=== PATIENT | male | born 1985 | race Caucasian/White ===

== ENCOUNTER → 2017-12-23 | Outpatient (CLI) | payer OTHER ==
[~2017-12-23] MED LIST: FLOMAX0.4 MG PO; PERCOCET 7.5-31 EACH PO; VISTARIL 25 MG25 M1 PO; ZOFRAN ODT4 MG PO
--- NOTE | 2017-12-26 09:57 | PAINCON ---
[facility] [address] [place] [address] PAIN MANAGEMENT CONSULTATION Name: ADELIA CORADO Room: [facility] Cristiane#: [id number] Admission: 12/23/17 Attend Phys: Kp Chaves Discharge: Date of : 89 Report #: [id number] THIS REPORT FOR: //name// CC: Britany Osullivan The patient is a 31-year-old gentleman, seen in consultation at the request of Dr Cifuentes for evaluation of pain, low back. The patient notes he has had chronic axial back pain for a number of years. He was just medically disabled from the secondary to back issues and is now relocated to [place]. He prior had actually fairly good relief with radiofrequency neurolysis of the lumbar spine, both in [place] and again in [facility]. He states last RFL was in June. Pain is beginning to recur, he rates anywhere from 3-9 on a VAS. Pain is in the back, right greater than left, episodic pain in the right leg, but really not below the knee. Has subjective paresthesia in the anterior thigh, but no bowel or bladder continence changes. No specific weakness. He notes intermittent periodic, shooting, aching, throbbing, sharp, stabbing pain, exacerbated with walking and moving, some relief when he is recumbent. He takes an occasional NSAID (ibuprofen) for this. REVIEW OF SYSTEMS: Complete review of systems attached to chart and gone over with the patient. He is , uses an e-cigarette, was counseled regarding nicotine use and correlation with axial back pain. Drinks alcohol very infrequently. Other than the chronic axial back pain, his 12-point review of systems is fairly unremarkable (negative). He had a prior right leg fracture, treated with ORIF in 2013. 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 Pain impact score averages . PHYSICAL EXAMINATION: VITAL SIGNS: Reveal a pleasant 68 inch, 200 pound gentleman, in moderate distress. BMI is 31.9 kilograms per meter squared. Blood pressure is 113/67, pulse 75, respirations 16. NEUROLOGIC: Cranial nerves 2-12 are grossly intact. HEENT: Pupils equal, react to light and accommodation. Extraocular muscles are intact. There is no nystagmus. Lateral gaze deviation. Thyroid unremarkable. Upper extremity strength is preserved. HEART: Regular, without murmur. LUNGS: Clear to auscultation. EXTREMITIES: Rises from chair using armrest. Gait is tandem. Lower extremity strength is preserved. Straight leg raise negative. He is tense across the low back, right greater than left. Pain is exacerbated with sidebending and rotation. Ale[place] [address] PAIN MANAGEMENT CONSULTATION Name: ADELIA CORADO Room: [facility] WENDY Sauer#: [id number] Admission: 12/23/17 Attend Phys: Kp Chaves Discharge: Date of : 89 Report #: [id number] ASSESSMENT: Symptomatic lumbar spondylitic pain by clinical exam and history. RECOMMENDATION: Discussion with the patient today about therapeutic option. We will plan on moving forward with bilateral L4-L5 and L5-S1 facet joint injections under fluoroscopy. If local anesthetic and steroid affords relief for several months, we can repeat somewhat as needed. If this affords transient relief, we will move forward with medial branch dorsal rami diagnostic blocks, L3-L4, L5, with intention of moving forward with radiofrequency neurolysis if this too affords transient relief. Thanks for allowing me to participate in the patient's care. I will keep you abreast of his progress. <ELECTRONICALLY SIGNED> By: Ubaldo Osullivan DO 12/26/17 0957 1233 [id number] Osullivan DO /nt
== END ==
LOC: M.PC 02:53
DX: M47.896 Other spondylosis, lumbar region (principal); F10.20 Alcohol dependence, uncomplicated

== ENCOUNTER → 2018-01-20 | Outpatient (CLI) | payer OTHER ==
--- NOTE | 2018-01-21 07:19 | PAINCON ---
[facility] [address] [place] [address] PAIN MANAGEMENT CONSULTATION Name: ADELIA CORADO Room: [facility] Cristiane#: [id number] Admission: 01/20/18 Attend Phys: Kp Chaves Discharge: Date of : 89 Report #: [id number] THIS REPORT FOR: //name// CC: Britany Osullivan PROCEDURE: Bilateral lumbar facet joint injection under fluoroscopy. INDICATION: Symptomatic lumbar and lumbosacral spondylosis without myelopathy and axial back pain. The patient was prior seen on 12/23/2017. Diagnosis is the same. We sought authorization for lumbar facet joint injection under fluoroscopy. He has prior had multiple procedures including RFL. Last RFL was back in June for the same pain. The patient has had good relief in the past. This is the first procedure I have done on the patient. He moved from out of town. He presents to the pain clinic today with authorization for procedure. Notes the pain is a little worse on the left than the right, but notes that it does vacillate back and forth. Rates his subjective pain score as 3-4 on a VAS. He wished to proceed with lumbar facet joint injection under fluoroscopy. We will follow up in 1 week to reevaluate. 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 PROCEDURE: Bilateral L4-L5 and L5-S1 facet joint injection under fluoroscopy. INDICATION: Lumbar and lumbosacral spondylosis without myelopathy. DESCRIPTION OF PROCEDURE: After written informed consent was obtained, the patient was taken to the fluoroscopy suite and placed in the prone position. After sterile prep and drape, skin wheal was raised. A 22-gauge stylet needle was placed to contact the inferior aspect of the right L4-L5 and L5-S1 facet joints. AP and lateral projections showed good needle placement. A 20 mg triamcinolone plus 1 mL of 0.5% preservative free bupivacaine was injected. Both needles were removed. C-arm was turned obliquely to the contralateral side and the procedure was repeated. After all four needles were removed, the patient was allowed to ambulate to recover and monitored for an appropriate period of time. He noted pain was near absent on discharge. We will plan on moving forward with medial branch dorsal rami diagnostic block, L3, L4, and L5, if he does not get long-term relief with the steroid. Fluoroscopy time was under 20 seconds. <ELECTRONICALLY SIGNED> By: Ubaldo Osullivan DO 01/21/18 0719 1504 [id number] Osullivan DO /nt
== END | disposition home or self-care (01) ==
LOC: M.PC 03:34
DX: M47.816 Spondylosis without myelopathy or radiculopathy, lumbar region (principal); M47.817 Spondylosis without myelopathy or radiculopathy, lumbosacral region; G89.29 Other chronic pain; F17.200 Nicotine dependence, unspecified, uncomplicated; Z98.890 Other specified postprocedural states

== ENCOUNTER → 2018-02-03 | Outpatient (CLI) | payer OTHER ==
--- NOTE | 2018-02-04 07:13 | PAINCON ---
[facility] [address] [place] [address] PAIN MANAGEMENT CONSULTATION Name: MICKIEADELIA [facility] [id number] Admission: 02/03/18 Attend Phys: Kp Chaves Discharge: Date of : 87 Report #: [id number] THIS REPORT FOR: //name// CC: Britany Osullivan The patient is a 32-year-old gentleman prior diagnosed with symptomatic lumbar and lumbosacral spondylosis without myelopathy. Component of SI mediated pain though the latter appears fairly nominal. The patient was last seen in the pain clinic on 01/20/2018. Bilateral L4-L5 and L5-S1 facet joint injections under fluoroscopy afforded good yet transient relief of symptoms. The patient relates at least a 50% improvement. He returns to the pain clinic today noting pain continues to be problematic across the low back. Rates the pain as a 3-4 on a VAS and worse with activity. PHYSICAL EXAMINATION: Unchanged, 5 feet 8 inches, 204 pound gentleman, BMI of 31.3 kilograms per meter squared. Blood pressure 121/78, pulse 71 and respirations 16. Rises from chair using armrest. Gait is tandem. Lower extremity strength is preserved. Pain is exacerbated with rotation, sidebending and tender over the low lumbar facets. Does have a component of some pain over the SI joint though Aleksander test is nominal. ASSESSMENT: Symptomatic lumbar and lumbosacral spondylosis without myelopathy. RECOMMENDATION: After discussion with the patient today, we would like to move forward with bilateral medial branch dorsal rami diagnostic blocks at L3, L4 and L5. If this affords transient relief, we will consider radiofrequency neurolysis likely starting in the right side, which is a little more painful than the left. PROCEDURE NOTE: Bilateral L3, L4 and L5 medial branch dorsal rami diagnostic block. DESCRIPTION OF PROCEDURE: After written informed consent was obtained, the patient was taken to the fluoroscopy suite and placed in prone position. After sterile prep and drape, skin wheal was raised. A 22-gauge stylet needle was placed to contact the left L4 superior articular process, left L5 superior articular process and the left sacral ala notch compatible with left L3, L4, L5 medial branch dorsal rami. AP and lateral projections showed good needle placement. 1 mL of a 50:50 mix of 0.5% preservative-free bupivacaine with 1.5% preservative-free Xylocaine with 1:200,000 epinephrine was injected at each site. C-arm was turned obliquely to the contralateral side and the procedure was repeated. After all six needles were removed, the area was cleansed and Band-Aid was applied. Fluoroscopy time was approximately 20 seconds. The patient was allowed to ambulate to recovery room, monitored for an appropriate period of time, discharged in good and stable condition noting significant improvement in baseline pain in fact rating his pain at 1 [place] [address] PAIN MANAGEMENT CONSULTATION Name: ADELIA CORADO Room: [facility] Sauer#: [id number] Admission: 02/03/18 Attend Phys: Kp Chaves Discharge: Date of : 89 Report #: [id number] plan on moving forward with right-sided RFL. We will have the patient call the nurse line to report pain scores over the next 3 hours as well. <ELECTRONICALLY SIGNED> By: Ubaldo Osullivan DO 02/04/18 0713 1529 0015Ubaldo Osullivan DO /nt
== END | disposition home or self-care (01) ==
LOC: M.PC 04:01
DX: M47.816 Spondylosis without myelopathy or radiculopathy, lumbar region (principal); M47.817 Spondylosis without myelopathy or radiculopathy, lumbosacral region; M53.3 Sacrococcygeal disorders, not elsewhere classified; G89.29 Other chronic pain

== ENCOUNTER → 2018-02-10 | Outpatient (CLI) | payer OTHER ==
--- NOTE | 2018-02-11 07:09 | PAINCON ---
[address] [address] PAIN MANAGEMENT CONSULTATION Name: ADELIA CORADO Room: [facility]END[facility] Sauer#: [id number] Admission: 02/10/18 Attend Phys: Kp Chaves Discharge: Date of : 89 Report #: [id number] THIS REPORT FOR: //name// CC: Britany Osullivan DATE OF SERVICE: 02/10/2018 PROCEDURE: Radiofrequency neurolysis x 3, lumbar spine. INDICATION: Symptomatic lumbar and lumbosacral spondylosis without myelopathy (M47.816, M47.817). The patient had good improvement following diagnostic blocks, 01/20/2018 and 02/03/2018. Returns to pain clinic today requesting RFL. He has had this done several years ago at another location. We discussed risks and benefits today. The patient wished to proceed. Pain is primarily right sided. He wished to start with a right, will see him next week for consideration for left-sided RFL. ASSESSMENT: Symptomatic lumbar and lumbosacral spondylosis without myelopathy. PROCEDURE: Right, L3, L4, L5 medial branch dorsal rami neurolysis. DESCRIPTION OF PROCEDURE: After written and informed consent was obtained, the patient was taken to the fluoroscopy suite and placed in prone position. After sterile prep and drape, skin wheal was raised. After skin wheal was raised, a 40 mm RFK needle was placed to contact the right sacral ala notch, second needle was placed lateral to the L5 superior articular process adjacent to the L4-L5 facet and third needle was placed lateral to the L4 superior articular process lateral to the L3-L4 facet. AP and lateral projections showed good needle placement corresponding to the L5, L4 and L3 medial branch dorsal rami. Initial impedance, motor and sensory testing was accomplished, numbers are on the chart. Each needle was then injected with 1 mL of 1% preservative-free Xylocaine and heated for 90 seconds at 80 degrees centigrade. Each needle was then withdrawn approximately 1 mm and turned 90 degrees and heated 80 degrees centigrade for another 60 seconds. A 30 mg triamcinolone plus 1 mL of 0.5% preservative-free bupivacaine was injected to each site. All 3 needles were removed, area was cleansed, Band-Aids applied. The patient was allowed to ambulate to recovery, monitored [place] [address] PAIN MANAGEMENT CONSULTATION Name: ADELIA CORADO Room: [facility] Sauer#: [id number] Admission: 02/10/18 Attend Phys: Kp Chaves Discharge: Date of : 89 Report #: [id number] Fluoroscopy time was under 30 seconds. Followup in 1 week for reevaluation. Consideration for contralateral, i.e. left, radiofrequency neurolysis. <ELECTRONICALLY SIGNED> By: Ubaldo Osullivan DO 02/11/18 0709 1214 [id number] Cent[facility] Osullivan DO /edgar
== END | disposition home or self-care (01) ==
LOC: M.PC 03:47
DX: M47.816 Spondylosis without myelopathy or radiculopathy, lumbar region (principal); M47.817 Spondylosis without myelopathy or radiculopathy, lumbosacral region; G89.29 Other chronic pain; F17.210 Nicotine dependence, cigarettes, uncomplicated; Z98.890 Other specified postprocedural states

== ENCOUNTER → 2018-02-17 | Outpatient (CLI) | payer OTHER ==
--- NOTE | 2018-02-18 06:59 | PAINCON ---
[address] [address] PAIN MANAGEMENT CONSULTATION Name: ADELIA CORADO Room: [facility] WENDY Sauer#: [id number] Admission: 02/17/18 Attend Phys: Kp Chaves Discharge: Date of : 89 Report #: [id number] THIS REPORT FOR: //name// CC: Britany Osullivan The patient is a very pleasant 32-year-old gentleman, being treated for lumbar and lumbosacral spondylosis without myelopathy. He [place] of the lumbar [place] Under my care, we have performed diagnostic test with good efficacy left and right L3, L4, L5 medial branch dorsal rami. RFL right side neurolysis L3, L4 and L5 on 02/10/2018. He presents to pain clinic today for the contralateral (left) side neurolysis. He does have ongoing axial back pain. PHYSICAL EXAMINATION: Generally unchanged from presentation. ASSESSMENT: Symptomatic lumbar spondylosis without myelopathy, symptomatic lumbosacral spondylosis without myelopathy (M47.816 plus M47.817). PROCEDURE: Left-sided RFL lumbar, (medial branch dorsal rami L3, L4 and L5). PROCEDURE NOTE: After written informed consent was obtained, the patient was taken to the fluoroscopy suite and placed in prone position. After sterile prep and drape, skin wheal was raised. A 10-mm RFK needle was placed to contact the left sacral ala notch, second needle was placed lateral to the superior articular process of L5, adjacent to the L4-L5 facet joint; third needle was placed lateral to the superior articular process of L4, lateral to the L3-L4 facet joint. AP and lateral projections showed good needle placement corresponding to the appropriate medial branch dorsal rami. Initial impedance, stimulation and motor testing was accomplished, those numbers are on the chart. Each needle was then injected with 1 mL of 1% preservative-free Xylocaine, heated to 80-degree centigrade for 90 seconds. Each needle was then turned 90 degrees, withdrawn approximately 1 mm, heated again to 80 degrees centigrade for 90 seconds. A 30 mg triamcinolone plus 1 mL of 0.5% preservative-free bupivacaine was injected to each site. All 3 needles were removed, the area was cleansed, Band-Aid applied. The patient monitored for an appropriate period of time, discharged in good and stable condition. <ELECTRONICALLY SIGNED> By: Ubaldo Osullivan DO 02/18/18 0659 1215 1513Ubaldo Osullivan DO /nt
== END | disposition home or self-care (01) ==
LOC: M.PC 00:40
DX: M47.816 Spondylosis without myelopathy or radiculopathy, lumbar region (principal); M47.817 Spondylosis without myelopathy or radiculopathy, lumbosacral region; M54.9 Dorsalgia, unspecified; Z98.890 Other specified postprocedural states

== ENCOUNTER 2018-08-01 23:56 | Emergency (ER) | payer OTHER ==
[~2018-08-01] VITALS: Ht 172.7 cm; Wt 90.7 kg
[2018-08-02] MEDS ORDERED: VISTARIL 25 MG25 M1 PO (00:08)
[2018-08-02] MEDS ORDERED: FLOMAX0.4 MG PO (01:11)
[2018-08-02] MEDS ORDERED: ZOFRAN ODT4 MG PO (01:11)
[2018-08-02] MEDS ORDERED: PERCOCET 7.5-31 EACH PO (01:11)
[2018-08-02 01:38] LABS: URINE BILIRUBIN NEGATIVE (Negative); URINE BLOOD 1+ (Negative); URINE CLARITY CLEAR; URINE COLOR YELLOW; URINE GLUCOSE-RANDOM NEGATIVE (Negative); URINE KETONES NEGATIVE (Negative); URINE LEUKOCYTES-REFLEX NEGATIVE (Negative); URINE NITRITE-REFLEX NEGATIVE (Negative); URINE PROTEIN NEGATIVE (Negative); URINE SPECIFIC GRAVITY >= 1.030 (1.005-1.030); URINE UROBILINOGEN 0.2 E.U./dl (0.2-1.0)
[2018-08-02 01:46] LABS: CASTS None Seen /LPF (None Seen); CRYSTALS None Seen /LPF (None Seen); MUCUS >6 Heavy strn/LPF (None Seen); SQUAMOUS 0-3 Few /LPF (0-3); URINE WBC-REFLEX None Seen /HPF (0-5)
[2018-08-02 01:48] LABS: AMP/METHAMP Negative (Negative); BARBITURATES Negative (Negative); BENZODIAZEPINES Negative (Negative); COCAINE Negative (Negative); METHADONE Negative (Negative); OPIATES Negative (Negative); PCP Negative (Negative); THC Negative (Negative)
[2018-08-02 01:50] VITALS: BP 110/66
== END 2018-08-02 01:50 | disposition home or self-care (01) ==
LOC: M.ERS 23:56
PROVIDERS: Emergency Medicine
DX: N20.0 Calculus of kidney (principal); F41.9 Anxiety disorder, unspecified; F32.9 Major depressive disorder, single episode, unspecified

== ENCOUNTER 2018-08-09 05:53 | Inpatient (IN) | payer OTHER ==
[~2018-08-09] VITALS: Ht 172.7 cm; Wt 90.7 kg
[2018-08-09 06:06] VITALS: BP 130/88
[2018-08-09 06:08] LABS: URINE BILIRUBIN NEGATIVE (Negative); URINE BLOOD 3+ (Negative); URINE CLARITY CLEAR; URINE COLOR YELLOW; URINE GLUCOSE-RANDOM NEGATIVE (Negative); URINE KETONES NEGATIVE (Negative); URINE LEUKOCYTES-REFLEX NEGATIVE (Negative); URINE NITRITE-REFLEX NEGATIVE (Negative); URINE PROTEIN TRACE (Negative); URINE SPECIFIC GRAVITY >= 1.030 (1.005-1.030); URINE UROBILINOGEN 0.2 E.U./dl (0.2-1.0)
[2018-08-09 06:21] LABS: ABSOLUTE EOSINOPHILS 0.1 thou/uL (0.0-0.7); ABSOLUTE LYMPHOCYTES 2.1 thou/uL (0.8-5.3); ABSOLUTE MONOCYTES 0.7 thou/uL (0.0-1.2); ABSOLUTE NEUTROPHILS 4.4 thou/uL (1.6-8.1); BASOPHILS 0.7 %; HEMATOCRIT 47.4 % (42.0-52.0); HEMOGLOBIN 15.9 gm/dL (14.0-18.0); LYMPHOCYTES 28.6 %; MCH 29.2 pg (26.0-34.0); MCHC 33.4 g/dL (28.0-37.0); MCV 87.4 fL (80.0-100.0); MONOCYTES 9.2 %; MPV 8.1 fl. (7.2-11.1); NUCLEATED RBCS 0 /100WBC; PLATELET COUNT* 299 thou/uL (150-400); POLYS 59.5 %; RBC 5.42 mil/uL (4.50-6.00); RDW-CV 12.6 % (10.5-14.5); WBC 7.3 thou/uL (4.0-11.0)
[2018-08-09 06:26] LABS: SQUAMOUS NONE SEEN /LPF (0-3)
[2018-08-09 06:27] LABS: BACTERIA-REFLEX None Seen /HPF (None Seen); CASTS None Seen /LPF (None Seen); CRYSTALS None Seen /LPF (None Seen); MUCUS 4-6 Moderate strn/LPF (None Seen); URINE RBC 3-10 Few /HPF (0-2); URINE WBC-REFLEX 0-5 Rare /HPF (0-5)
[2018-08-09 06:28] LABS: CREATININE 1.2 mg/dL (0.6-1.3); POTASSIUM 3.7 mmol/L (3.5-5.1)
[2018-08-09 06:33] LABS: TOTAL BILIRUBIN 0.7 mg/dL (<0.1-1.0)
[2018-08-09 08:10] VITALS: BP 101/65
[2018-08-09 08:15] VITALS: BP 115/67
[2018-08-09] MEDS ORDERED: FLOMAX0.4 MG PO (08:59)
[2018-08-09 11:22] LABS: CALCIUM 8.7 mg/dL (8.5-10.1); CREATININE 1.1 mg/dL (0.6-1.3); MAGNESIUM 1.9 mg/dL (1.8-2.4); POTASSIUM 3.7 mmol/L (3.5-5.1)
[2018-08-09 12:20] VITALS: BP 110/74
[2018-08-09 14:43] VITALS: BP 110/74
[2018-08-09 17:09] VITALS: BP 113/79
== END 2018-08-09 17:34 | disposition home or self-care (01) | DRG 694 ==
LOC: M.ERS 05:53 → M.TBA-ER 07:27 → M.2W 08:17
PROVIDERS: Emergency Medicine Emergency Medical Services; ADMIT Internal Medicine
DX: N13.2 Hydronephrosis with renal and ureteral calculous obstruction (principal); F32.9 Major depressive disorder, single episode, unspecified; F41.9 Anxiety disorder, unspecified; R31.29 Other microscopic hematuria; F17.210 Nicotine dependence, cigarettes, uncomplicated; Z87.442 Personal history of urinary calculi

== ENCOUNTER → 2018-08-11 | Day surgery (SDC) | payer OTHER ==
--- NOTE | 2018-08-11 12:01 | OP ---
[address] [address] OPERATIVE REPORT Name: MICKIEADELIA YOSVANY Room: [facility]..#: [id number] Admission: 08/11/18 Attend Phys: Carlos Pierre MD Discharge: Date of : 89 Report #: [id number] THIS REPORT FOR: //name// CC: [facility] Lian Julianmichelle Pierre DATE OF SERVICE: 08/11/2018 PREOPERATIVE DIAGNOSIS: Left ureteral obstruction. POSTOPERATIVE DIAGNOSIS: Left ureteral obstruction secondary to a 6 mm left proximal ureteral stone. PROCEDURE PERFORMED: Cystoscopy, left retrograde pyelogram, left flexible ureteroscopy with laser lithotripsy and basketing of stone and JJ stent placement. All this under fluoroscopic monitoring. SURGEON: Carlos Pierre MD COMPLICATIONS: None. DRAINS: Include a 6 x 28 cm stent in the left ureter. SPECIMEN: Stone fragments to pathology. ANESTHETIC: General. BLOOD LOSS: None. COMPLICATIONS: None. INDICATIONS: This is a 32-year-old male who was seen earlier this week at the hospital with a 6 mm left proximal ureteral stone. He opted to go home and come back for elective ureteroscopy. We discussed the procedure, risks, potential complications, alternatives including lithotripsy with the patient and his spouse and he has elected to proceed with ureteroscopy. He understands the risk of bleeding, infection, scar tissue formation, residual fragments, need for additional procedures, injury to the urinary tract or adjacent structures. DESCRIPTION OF PROCEDURE: Following informed consent, the patient taken to the operating room and placed under general anesthesia, was prepped and draped in sterile fashion in the dorsal lithotomy position. Cystoscopy was carried out. The patient has a normal anterior urethra, nonobstructing prostate and a normal appearing bladder. The left ureteral orifice was cannulated using a Pollack catheter. Retrograde pyelogram revealed a filling defect approximately [place] [address] OPERATIVE REPORT Name: ADELIA CORADO Room: [facility]#: [id number] Admission: 08/11/18 Attend Phys: Carlos Pierre MD Discharge: Date of : 89 Report #: [id number] the left side with minimal hydronephrosis. A floppy tipped guidewire was then advanced under fluoroscopic monitoring into the renal pelvis and a 11/13 Latvian ureteral dilator was placed up to the level of the stone under fluoroscopic monitoring. Following this, then the flexible ureteroscope was inserted through the sheath until the stone could be visualized. The holmium laser was then used to fragment the stone into multiple small pieces. The larger of these were removed with the basket and submitted for stone analysis. Then, the wire was replaced into the renal collecting system. The ureteral access sheath was removed, the cystoscope backloaded over the wire and a 6 x 28 cm stent placed with coil in the upper pole concepcion and a coil in the bladder. The patient was given a Uro-Jet per urethra, B and O suppository, Toradol injection, returned to recovery room in satisfactory condition. He will need to return to the office in 7-14 days for cystoscopy and stent removal. He does not need a KUB. <ELECTRONICALLY SIGNED> By: Carlos Pierre MD 08/11/18 1201 1141 [id number] Pierre MD /nt
== END | disposition home or self-care (01) ==
LOC: M.SUR 08:52
DX: N13.2 Hydronephrosis with renal and ureteral calculous obstruction (principal); R31.29 Other microscopic hematuria; F32.9 Major depressive disorder, single episode, unspecified; F41.9 Anxiety disorder, unspecified; Z87.891 Personal history of nicotine dependence; Z79.891 Long term (current) use of opiate analgesic; Z88.8 Allergy status to other drugs, medicaments and biological substances; Z98.890 Other specified postprocedural states

== ENCOUNTER 2019-06-12 19:51 | Emergency (ER) | payer OTHER ==
[~2019-06-12] VITALS: Ht 172.7 cm; Wt 95.3 kg
[2019-06-12 19:57] VITALS: BP 134/85
[2019-06-12] MEDS ORDERED: ZOLOFT25 MG PO (20:02)
[2019-06-12] MEDS ORDERED: NORCO 5-325 TA1 EAC1 PO (20:18)
[2019-06-12] MEDS ORDERED: CIPROFLOXACIN500 M1 PO (20:18)
== END 2019-06-12 20:25 | disposition home or self-care (01) ==
LOC: M.ERS 19:51
DX: N50.811 Right testicular pain (principal); F41.9 Anxiety disorder, unspecified; F32.9 Major depressive disorder, single episode, unspecified; Z87.442 Personal history of urinary calculi; Z88.8 Allergy status to other drugs, medicaments and biological substances

== ENCOUNTER → 2019-06-15 | Outpatient (CLI) | payer OTHER ==
[~2019-06-15] MED LIST changes: +CIPROFLOXACIN500 M1 PO; +NORCO 5-325 TA1 EAC1 PO; +ZOLOFT25 MG PO
== END ==
LOC: M.PC 05:31
DX: M51.36 Other intervertebral disc degeneration, lumbar region (principal); M47.816 Spondylosis without myelopathy or radiculopathy, lumbar region; Z87.891 Personal history of nicotine dependence; Z72.89 Other problems related to lifestyle; Z79.899 Other long term (current) drug therapy

== ENCOUNTER 2020-02-13 11:22 | Emergency (ER) | payer OTHER ==
[~2020-02-13] VITALS: Ht 172.7 cm; Wt 99.8 kg
[2020-02-13 12:01] LABS: ABSOLUTE BASOPHILS 0.1 thou/uL (0.0-0.2); ABSOLUTE EOSINOPHILS 0.3 thou/uL (0.0-0.7); ABSOLUTE LYMPHOCYTES 1.7 thou/uL (0.8-5.3); ABSOLUTE MONOCYTES 0.9 thou/uL (0.0-1.2); ABSOLUTE NEUTROPHILS 12.3 thou/uL (1.6-8.1); BASOPHILS 0.5 %; EOSINOPHILS 2.2 %; HEMATOCRIT 46.5 % (42.0-52.0); HEMOGLOBIN 16.1 gm/dL (14.0-18.0); LYMPHOCYTES 11.1 %; MCH 30.5 pg (26.0-34.0); MCHC 34.6 g/dL (28.0-37.0); MCV 88.4 fL (80.0-100.0); MONOCYTES 6.1 %; MPV 8.4 fl. (7.2-11.1); NUCLEATED RBCS 0 /100WBC; PLATELET COUNT* 275 thou/uL (150-400); POLYS 80.1 %; RBC 5.26 mil/uL (4.50-6.00); RDW-CV 12.8 % (10.5-14.5); WBC 15.3 thou/uL (4.0-11.0)
[2020-02-13 12:12] LABS: CALCIUM 8.8 mg/dL (8.5-10.1); CREATININE 1.4 mg/dL (0.6-1.3); POTASSIUM 3.8 mmol/L (3.5-5.1)
[2020-02-13 12:16] LABS: ALBUMIN 4.2 g/dL (3.4-5.0); TOTAL BILIRUBIN 0.6 mg/dL (<0.1-1.0); TOTAL PROTEIN 7.8 g/dL (6.4-8.2)
[2020-02-13 13:09] LABS: URINE BILIRUBIN NEGATIVE (Negative); URINE BLOOD 3+ (Negative); URINE CLARITY CLEAR; URINE COLOR YELLOW; URINE GLUCOSE-RANDOM NEGATIVE (Negative); URINE KETONES NEGATIVE (Negative); URINE LEUKOCYTES-REFLEX NEGATIVE (Negative); URINE NITRITE-REFLEX NEGATIVE (Negative); URINE PROTEIN TRACE (Negative); URINE UROBILINOGEN 0.2 E.U./dl (0.2-1.0)
[2020-02-13] MEDS ORDERED: NORCO 5-325 TA1 EAC1 PO (13:14)
[2020-02-13] MEDS ORDERED: FLOMAX0.4 MG PO (13:14)
[2020-02-13] MEDS ORDERED: ONDANSETRON ODT4 MG PO (13:14)
[2020-02-13 13:15] LABS: BACTERIA-REFLEX 1-9 Few /HPF (None Seen); CASTS None Seen /LPF (None Seen); CRYSTALS None Seen /LPF (None Seen); MUCUS 0-3 Light strn/LPF (None Seen); SQUAMOUS 0-3 Few /LPF (0-3); URINE RBC >20 Many /HPF (0-2); URINE WBC-REFLEX 0-5 Rare /HPF (0-5)
[2020-02-13 13:35] VITALS: BP 121/55
== END 2020-02-13 13:35 | disposition still patient (30) ==
LOC: M.ERS 11:22
PROVIDERS: Personal Emergency Response Attendant
DX: N20.1 Calculus of ureter (principal); F41.9 Anxiety disorder, unspecified; F32.9 Major depressive disorder, single episode, unspecified; Z88.5 Allergy status to narcotic agent

== ENCOUNTER → 2020-11-28 | Outpatient (CLI) | payer OTHER ==
[~2020-11-28] MED LIST changes: +ONDANSETRON ODT4 MG PO
== END ==
LOC: M.PC 09:21
PROVIDERS: ATTEND Physical Medicine & Rehabilitation
DX: M51.36 Other intervertebral disc degeneration, lumbar region (principal); M47.816 Spondylosis without myelopathy or radiculopathy, lumbar region; Z87.39 Personal history of other diseases of the musculoskeletal system and connective tissue

== ENCOUNTER → 2021-01-09 | Outpatient (CLI) | payer OTHER | LOC: M.PC 06:39 | PROVIDERS: ATTEND Physical Medicine & Rehabilitation | DX: M47.816 Spondylosis without myelopathy or radiculopathy, lumbar region (principal); M51.36 Other intervertebral disc degeneration, lumbar region ==

== ENCOUNTER → 2021-01-14 | Outpatient (CLI) | payer OTHER | LOC: M.LAB 07:04 | PROVIDERS: ATTEND Physical Medicine & Rehabilitation | DX: Z01.812 Encounter for preprocedural laboratory examination (principal); Z20.822 Contact with and (suspected) exposure to COVID-19 ==